=== PATIENT | female | born 1960 | race Caucasian/White ===

== ENCOUNTER 2020-04-23 17:00 | Emergency (ER) | payer SELFPAY ==
[~2020-04-23] VITALS: Ht 165.1 cm; Wt 122.3 kg
[~2020-04-23 17:00] MED LIST: CHLO1CAP PO; INSU100C5 SQ-INSULIN; INSU100V8 SQ; LISI-170 PO; MONT4GRA PO; OMEP20CA9 PO
--- NOTE | 2020-04-23 17:44 | NUR ---
Pt here for onset of dizziness after going to the denist. Pt reports she was told her BP was low. Pt reports that she started feeling worse today and its not getting better. Pt reports that she has no insurance and stopped taking her medications. Pt in room resting and connected to monitors.
[2020-04-23] MEDS ORDERED: MECLIZINE CHEWABLE 25 MG TAB ONE (17:51)
[2020-04-23] MEDS ORDERED: ONDANSETRON ODT 4 MG ONE (17:51)
[2020-04-23 18:00] LABS: BASOPHILS # (AUTO) 0.04 x10^3/uL (0-0.1); BASOPHILS % (AUTO) 0 % (0-1); EOSINOPHILS # (AUTO) 0.08 x10^3/uL (0-0.4); EOSINOPHILS % (AUTO) 1 % (1-7); LYMPHOCYTES # (AUTO) 2.02 x10^3/uL (1-3.4); LYMPHOCYTES % (AUTO) 21 % (22-44); MD NO; MEAN CORPUSCULAR HEMOGLOBIN 29.5 pg (27.0-34.8); MEAN CORPUSCULAR HGB CONC 34.3 g/dL (32.4-35.8); MEAN CORPUSCULAR VOLUME 86.2 fL (80-100); MEAN PLATELET VOLUME 8.1 fL (7.4-10.4); MONOCYTES % (AUTO) 6 % (2-9); NEUTROPHILS # (AUTO) 7.09 x10^3/uL (1.8-6.8); NEUTROPHILS % (AUTO) 72 % (42-75); PLATELET COUNT 317 x10^3/uL (130-400); RED BLOOD COUNT 4.21 x10^6/uL (3.82-5.3)
[2020-04-23] MEDS ORDERED: ONDANSETRON ODT 4 MG PO ONE (18:00)
[2020-04-23] MEDS ORDERED: MECLIZINE CHEWABLE 25 MG TAB PO ONE (18:00)
--- NOTE | 2020-04-23 18:00 | NUR ---
Pt medicated per emar.
[2020-04-23 18:11] LABS: ALANINE AMINOTRANSFERASE 15 U/L (12-78); ALBUMIN 3.1 g/dL (3.4-5.0); ANION GAP 9 mmol/L (5-15); CALCIUM 8.7 mg/dL (8.5-10.1); CHLORIDE 97 mmol/L (98-107)
[2020-04-23 18:15] LABS: ALKALINE PHOSPHATASE 86 U/L (45-117); BILIRUBIN,TOTAL 0.5 mg/dL (0.2-1.0); TROPONIN I < 0.015 ng/mL (0.000-0.045)
--- NOTE | 2020-04-23 18:59 | NUR ---
REPORT RECEIVED FROM ADI MURPHY.
[2020-04-23] MEDS ORDERED: SODIUM CHLORIDE 0.9% 1,000ML IVBOLUS ONE (19:00)
--- NOTE | 2020-04-23 19:04 | NUR ---
Report to Anjelica MURPHY
--- NOTE | 2020-04-23 19:12 | NUR ---
PT IV STARTED PER ORDERS, IVF INFUSING. PT ON MONITORS, VSS. CONT TO MONITOR.
--- NOTE | 2020-04-23 20:51 | NUR ---
PT D/C'D PER ORDERS. PT WITH STEADY GAIT UPON D/C. PT VERBALIZED UNDERSTANDING OF D/C INSTRUCTIONS.
[2020-04-23 20:52] VITALS: BP 170/78
== END 2020-04-23 20:53 | disposition home or self-care (01) ==
LOC: ED 18:39
DX: R55 Syncope and collapse (principal); E11.65 Type 2 diabetes mellitus with hyperglycemia; R79.89 Other specified abnormal findings of blood chemistry; R42 Dizziness and giddiness; R94.31 Abnormal electrocardiogram [ECG] [EKG]; R07.9 Chest pain, unspecified; I10 Essential (primary) hypertension; I25.2 Old myocardial infarction; J45.909 Unspecified asthma, uncomplicated; Z87.891 Personal history of nicotine dependence
CPT/HCPCS: 36415; 71045; 80053; 84484; 85025; 93005; 96360; 96361; 99285; J7030; Q0162

== ENCOUNTER 2020-12-25 16:13 | Inpatient (IN) | payer BC, OTHER, SELFPAY ==
[~2020-12-25] VITALS: Ht 165.1 cm; Wt 138.7 kg
[~2020-12-25 16:13] MED LIST changes: +ALBU18HF INH; +AMLO-150 PO; +ASCO500T9 PO; +AZIT500T PO; +CEFD300C37 PO; +CHOL500045 PO; +INSU100I11 SQ-INSULIN; +INSU100I13 SQ-INSULIN; +LISI-167 PO; +MELA5TAB14 PO; +ONDA4TAB13 PO; +ZINC220C7 PO
[2020-12-25] MEDS ORDERED: ONDANSETRON 2MG/ML, 2ML IVPush ONE (17:00)
[2020-12-25] MEDS ORDERED: MORPHINE SULFATE 4 MG/ML, 1ML IVPush ONE (17:00)
[2020-12-25] MEDS ORDERED: MORPHINE SULFATE 4 MG/ML, 1ML ONE (17:16)
[2020-12-25] MEDS ORDERED: ONDANSETRON 2MG/ML, 2ML ONE (17:16)
[2020-12-25 17:26] LABS: BASOPHILS % (AUTO) 1 % (0-1); EOSINOPHILS % (AUTO) 1 % (1-7); LYMPHOCYTES % (AUTO) 20 % (22-44); MEAN CORPUSCULAR HEMOGLOBIN 27.9 pg (27.0-34.8); MEAN CORPUSCULAR HGB CONC 33.3 g/dL (32.4-35.8); MEAN PLATELET VOLUME 7.6 fL (7.4-10.4); MONOCYTES % (AUTO) 8 % (2-9); NEUTROPHILS % (AUTO) 70 % (42-75); PLATELET COUNT 435 x10^3/uL (130-400); RED BLOOD COUNT 4.06 x10^6/uL (3.82-5.3); RED CELL DISTRIBUTION WIDTH 12.3 % (9.6-15.2)
[2020-12-25 17:34] LABS: ANION GAP 5 mmol/L (5-15); CALCIUM 8.6 mg/dL (8.5-10.1); CHLORIDE 98 mmol/L (98-107)
[2020-12-25 17:36] LABS: MD NO
--- NOTE | 2020-12-25 17:50 | NUR ---
PT HAS SWELLING AND BLISTER TO LEFT FOOT FROM A SANDLE THAT WAS RUBBING ON TOP OF FOOT PER PT. PT HAS FAMILY AT BED SIDE. PT AXO X 4, PT HAS EQUAL AND UNLABORED BREATHING. PT ON MONITOR WITH PT VSS
[2020-12-25] MEDS ORDERED: VANCOMYCIN PER PHARMACY MC ONE (18:30)
[2020-12-25] MEDS ORDERED: INSULIN REGULAR 100 UNITS/ML, 3ML VIAL IVPush ONE (18:30)
[2020-12-25] MEDS ORDERED: SODIUM CHLORIDE 0.9% 1,000ML IVBOLUS ONE (18:30)
[2020-12-25] MEDS ORDERED: AMPICILLIN/SULBACTAM 3 GM in SODIUM CHLORIDE 0.9% 100 ML IV ONE (18:30)
[2020-12-25] MEDS ORDERED: VANCOMYCIN 2,200 MG in SODIUM CHLORIDE 0.9% 500 ML IV ONE ×2 (19:30→21:00)
[2020-12-25 19:39] VITALS: BP 116/46
[2020-12-25] MEDS ORDERED: ALBUTEROL HFA 90 MCG/SPRAY INH PRN (20:30)
[2020-12-25] MEDS ORDERED: VANCOMYCIN PER PHARMACY MC PRN (20:30)
[2020-12-25] MEDS ORDERED: POLYETHYLENE GLYCOL 17 GM PACKET PO PRN (20:30)
[2020-12-25] MEDS ORDERED: BISACODYL 10 MG SUPP PR PRN (20:30)
[2020-12-25] MEDS ORDERED: ACETAMINOPHEN 325 MG TABLET PO PRN (20:30)
[2020-12-25] MEDS ORDERED: PHARMACOKINETIC MONITORING MC PRN (21:00)
[2020-12-25] MEDS: SODIUM CHLORIDE 0.9% 1,000 ML IV SCH (21:12)
[2020-12-25] MEDS: AMPICILLIN/SULBACTAM 3 GM in SODIUM CHLORIDE 0.9% 100 ML IV SCH (21:12)
[2020-12-25] MEDS: HEPARIN 5,000 UNITS/ML, 1ML SQ SCH (21:26)
[2020-12-25] MEDS: INSULIN LISPRO 100 UNITS/ML, PEN SQ-INSULIN SCH (21:26)
[2020-12-25] MEDS: MELATONIN 5 MG TABLET PO SCH (21:26)
[2020-12-25] MEDS: ASCORBIC ACID 500 MG TABLET PO SCH (21:26)
[2020-12-26 01:10] VITALS: BP 146/80
[2020-12-26] MEDS: AMPICILLIN/SULBACTAM 3 GM in SODIUM CHLORIDE 0.9% 100 ML IV SCH ×4 (03:10→21:00)
[2020-12-26 05:10] LABS: BASOPHILS % (AUTO) 1 % (0-1); EOSINOPHILS % (AUTO) 3 % (1-7); LYMPHOCYTES % (AUTO) 28 % (22-44); MEAN CORPUSCULAR HEMOGLOBIN 28.9 pg (27.0-34.8); MEAN CORPUSCULAR HGB CONC 34.4 g/dL (32.4-35.8); MEAN PLATELET VOLUME 7.4 fL (7.4-10.4); MONOCYTES % (AUTO) 9 % (2-9); NEUTROPHILS % (AUTO) 59 % (42-75); PLATELET COUNT 342 x10^3/uL (130-400); RED BLOOD COUNT 3.52 x10^6/uL (3.82-5.3); RED CELL DISTRIBUTION WIDTH 12.1 % (9.6-15.2)
[2020-12-26 05:11] LABS: MD NO
[2020-12-26 05:22] LABS: ANION GAP 2 mmol/L (5-15); CALCIUM 8.3 mg/dL (8.5-10.1); CHLORIDE 103 mmol/L (98-107); CREATININE 1.02 mg/dL (0.55-1.02)
[2020-12-26] MEDS: HEPARIN 5,000 UNITS/ML, 1ML SQ SCH ×3 (05:34→22:21)
[2020-12-26 07:11] VITALS: BP 132/70
[2020-12-26] MEDS: ZINC SULFATE 220 MG CAPSULE PO SCH (07:42)
[2020-12-26] MEDS: LISINOPRIL 10 MG TABLET PO SCH (07:43)
[2020-12-26] MEDS: AMLODIPINE 5 MG TABLET PO SCH (07:43)
[2020-12-26] MEDS: SENNA/DOCUSATE TABLET PO SCH (07:43)
[2020-12-26] MEDS: ASCORBIC ACID 500 MG TABLET PO SCH ×2 (07:43→21:01)
[2020-12-26] MEDS: CHOLECALCIFEROL 5,000u TAB PO SCH (07:43)
[2020-12-26] MEDS: INSULIN LISPRO 100 UNITS/ML, PEN SQ-INSULIN SCH ×4 (07:53→21:01)
[2020-12-26] MEDS: INSULIN GLARGINE 100 UNITS/ML, PEN SQ-INSULIN SCH (07:55)
[2020-12-26] MEDS: SODIUM CHLORIDE 0.9% 1,000 ML IV SCH (07:58)
[2020-12-26] MEDS: ONDANSETRON 2MG/ML, 2ML IVPush PRN (08:12)
[2020-12-26] MEDS: morphine SULFATE 10 MG/ML, 1ML IVPush PRN ×2 (10:18→21:01)
[2020-12-26] MEDS ORDERED: GADOTERATE 7.5 MMOL/15ML SYR ONE (12:40)
[2020-12-26 18:04] VITALS: BP 122/79
[2020-12-26 19:33] VITALS: BP 116/73
[2020-12-26] MEDS: MELATONIN 5 MG TABLET PO SCH (21:01)
[2020-12-26] MEDS: VANCOMYCIN 2,000 MG in SODIUM CHLORIDE 0.9% 500 ML IV SCH (22:21)
[2020-12-27 03:22] VITALS: BP 128/82
[2020-12-27] MEDS: AMPICILLIN/SULBACTAM 3 GM in SODIUM CHLORIDE 0.9% 100 ML IV SCH ×4 (03:23→21:21)
[2020-12-27 05:28] LABS: BASOPHILS % (AUTO) 1 % (0-1); EOSINOPHILS % (AUTO) 3 % (1-7); LYMPHOCYTES % (AUTO) 25 % (22-44); MEAN CORPUSCULAR HEMOGLOBIN 28.9 pg (27.0-34.8); MEAN CORPUSCULAR HGB CONC 34.3 g/dL (32.4-35.8); MEAN PLATELET VOLUME 7.5 fL (7.4-10.4); MONOCYTES % (AUTO) 7 % (2-9); NEUTROPHILS % (AUTO) 65 % (42-75); PLATELET COUNT 338 x10^3/uL (130-400); RED BLOOD COUNT 3.41 x10^6/uL (3.82-5.3); RED CELL DISTRIBUTION WIDTH 12.4 % (9.6-15.2)
[2020-12-27 05:29] LABS: MD NO
[2020-12-27 05:31] LABS: ANION GAP 5 mmol/L (5-15); CHLORIDE 104 mmol/L (98-107); CREATININE 0.94 mg/dL (0.55-1.02)
[2020-12-27] MEDS: HEPARIN 5,000 UNITS/ML, 1ML SQ SCH ×3 (06:11→21:23)
[2020-12-27 07:12] VITALS: BP 142/84
[2020-12-27] MEDS: AMLODIPINE 5 MG TABLET PO SCH (07:14)
[2020-12-27] MEDS: ZINC SULFATE 220 MG CAPSULE PO SCH (07:14)
[2020-12-27] MEDS: ASCORBIC ACID 500 MG TABLET PO SCH ×2 (07:14→21:22)
[2020-12-27] MEDS: LISINOPRIL 10 MG TABLET PO SCH (07:14)
[2020-12-27] MEDS: SENNA/DOCUSATE TABLET PO SCH (07:15)
[2020-12-27] MEDS: CHOLECALCIFEROL 5,000u TAB PO SCH (07:15)
[2020-12-27] MEDS: INSULIN LISPRO 100 UNITS/ML, PEN SQ-INSULIN SCH ×4 (07:20→21:24)
[2020-12-27] MEDS ORDERED: LORazepam 0.5MG TABLET PO ONE ×2 (08:30→21:30)
[2020-12-27] MEDS: INSULIN GLARGINE 100 UNITS/ML, PEN SQ-INSULIN SCH (10:06)
[2020-12-27] MEDS ORDERED: FUROSEMIDE 40 MG/4 ML IV ONE (11:30)
[2020-12-27 13:16] VITALS: BP 95/61
[2020-12-27 20:40] VITALS: BP 164/90
[2020-12-27] MEDS: MELATONIN 5 MG TABLET PO SCH (21:22)
[2020-12-27] MEDS: VANCOMYCIN 2,000 MG in SODIUM CHLORIDE 0.9% 500 ML IV SCH (22:30)
[2020-12-27] MEDS: morphine SULFATE 10 MG/ML, 1ML IVPush PRN (22:38)
[2020-12-28 00:05] VITALS: BP 113/67
[2020-12-28] MEDS: AMPICILLIN/SULBACTAM 3 GM in SODIUM CHLORIDE 0.9% 100 ML IV SCH ×4 (03:01→20:55)
[2020-12-28] MEDS: HEPARIN 5,000 UNITS/ML, 1ML SQ SCH ×3 (06:19→23:03)
[2020-12-28] MEDS: ALBUTEROL/IPRATROPIUM 2.5MG/0.5MG, 3 ML NPPB SCH ×3 (06:55→20:19)
[2020-12-28 06:57] VITALS: BP 145/70
[2020-12-28] MEDS: INSULIN GLARGINE 100 UNITS/ML, PEN SQ-INSULIN SCH (08:02)
[2020-12-28] MEDS: INSULIN LISPRO 100 UNITS/ML, PEN SQ-INSULIN SCH ×4 (08:02→20:57)
[2020-12-28] MEDS: ASCORBIC ACID 500 MG TABLET PO SCH ×2 (08:06→20:56)
[2020-12-28] MEDS: SENNA/DOCUSATE TABLET PO SCH (08:06)
[2020-12-28] MEDS: AMLODIPINE 5 MG TABLET PO SCH (08:07)
[2020-12-28] MEDS: LISINOPRIL 10 MG TABLET PO SCH (08:07)
[2020-12-28] MEDS: ZINC SULFATE 220 MG CAPSULE PO SCH (08:07)
[2020-12-28] MEDS: CHOLECALCIFEROL 5,000u TAB PO SCH (08:07)
[2020-12-28] MEDS ORDERED: FUROSEMIDE 40 MG/4 ML IV ONE (11:30)
[2020-12-28] MEDS: LORazepam 0.5MG TABLET PO PRN ×2 (11:31→20:55)
[2020-12-28 14:03] VITALS: BP 120/68
[2020-12-28 20:08] VITALS: BP 143/82
[2020-12-28] MEDS: MELATONIN 5 MG TABLET PO SCH (20:56)
[2020-12-28] MEDS: VANCOMYCIN 2,000 MG in SODIUM CHLORIDE 0.9% 500 ML IV SCH (23:02)
[2020-12-29] MEDS: AMPICILLIN/SULBACTAM 3 GM in SODIUM CHLORIDE 0.9% 100 ML IV SCH ×2 (02:44→10:38)
[2020-12-29 02:53] VITALS: BP 119/78
[2020-12-29 05:56] LABS: CHLORIDE 103 mmol/L (98-107)
[2020-12-29 06:07] LABS: ANION GAP 6 mmol/L (5-15); CALCIUM 8.3 mg/dL (8.5-10.1); CREATININE 0.92 mg/dL (0.55-1.02)
[2020-12-29] MEDS: INSULIN LISPRO 100 UNITS/ML, PEN SQ-INSULIN SCH ×2 (07:00→10:41)
[2020-12-29 07:50] VITALS: BP 101/62
[2020-12-29] MEDS: ALBUTEROL/IPRATROPIUM 2.5MG/0.5MG, 3 ML NPPB SCH (08:15)
[2020-12-29] MEDS: HEPARIN 5,000 UNITS/ML, 1ML SQ SCH (10:39)
[2020-12-29] MEDS: ONDANSETRON 2MG/ML, 2ML IVPush PRN (10:39)
[2020-12-29] MEDS: INSULIN GLARGINE 100 UNITS/ML, PEN SQ-INSULIN SCH (10:41)
[2020-12-29] MEDS: ZINC SULFATE 220 MG CAPSULE PO SCH (10:42)
[2020-12-29] MEDS: ASCORBIC ACID 500 MG TABLET PO SCH (10:42)
[2020-12-29] MEDS: CHOLECALCIFEROL 5,000u TAB PO SCH (10:42)
[2020-12-29] MEDS: AMLODIPINE 5 MG TABLET PO SCH (10:42)
[2020-12-29] MEDS: SENNA/DOCUSATE TABLET PO SCH (10:42)
[2020-12-29] MEDS: LORazepam 0.5MG TABLET PO PRN (10:43)
[2020-12-29] MEDS: LISINOPRIL 10 MG TABLET PO SCH (10:43)
[2020-12-29] MEDS ORDERED: LINE600T12 PO (11:35)
[2020-12-29] MEDS ORDERED: VANCOMYCIN 1,900 MG in SODIUM CHLORIDE 0.9% 250 ML IV SCH (23:00)
== END 2020-12-29 13:46 | disposition home or self-care (01) | DRG 602 ==
LOC: ED 18:42 → 3N 19:33
PROVIDERS: ADMIT Family Medicine; ATTEND Internal Medicine
DX: L03.116 Cellulitis of left lower limb (principal); N17.0 Acute kidney failure with tubular necrosis; E87.1 Hypo-osmolality and hyponatremia; Z68.43 Body mass index [BMI] 50.0-59.9, adult; E11.621 Type 2 diabetes mellitus with foot ulcer; L03.115 Cellulitis of right lower limb; L97.509 Non-pressure chronic ulcer of other part of unspecified foot with unspecified severity; Z88.6 Allergy status to analgesic agent; Z88.8 Allergy status to other drugs, medicaments and biological substances; B95.62 Methicillin resistant Staphylococcus aureus infection as the cause of diseases classified elsewhere; D64.9 Anemia, unspecified; E11.65 Type 2 diabetes mellitus with hyperglycemia; E66.01 Morbid (severe) obesity due to excess calories; I10 Essential (primary) hypertension; I25.2 Old myocardial infarction; J45.909 Unspecified asthma, uncomplicated; L97.529 Non-pressure chronic ulcer of other part of left foot with unspecified severity; Z79.4 Long term (current) use of insulin; Z80.3 Family history of malignant neoplasm of breast; Z82.3 Family history of stroke; Z85.41 Personal history of malignant neoplasm of cervix uteri; Z87.11 Personal history of peptic ulcer disease; Z90.711 Acquired absence of uterus with remaining cervical stump; Z90.710 Acquired absence of both cervix and uterus; Z90.49 Acquired absence of other specified parts of digestive tract
CPT/HCPCS: 36415; 80048; 80202; 82962; 83036; 83605; 83735; 84100; 85025; 86140; 87040; 87070; 87077; 87186; 87205; 94640; G0378; J0295; J1644; J1815; J1940; J2405; J3370; A9575; J2270; J7030; J7040

== ENCOUNTER 2021-01-01 10:03 | Inpatient (IN) | payer OTHER ==
[~2021-01-01] VITALS: Ht 165.1 cm; Wt 144.9 kg
[~2021-01-01 10:03] MED LIST changes: +LINE600T12 PO
--- NOTE | 2021-01-01 10:17 | NUR ---
PT BIBA.PER EMS PT HAS HAD SOB SINCE WEDNESDAY, BUT WORSE TODAY. PT HAS HX OF ASTHMA, INHALER DID NOT HELP TODAY. PER EMS PT WAS 70% RA, NOW IS 97% ON 2L NC. PT DENIES ANY CP OR FEVERS. PER EMS BS IS 399. PT ALSO STATES SHE IS A DIABETIC, BUT "I KEEP MY BLOOD SUGAR HIGH BECAUSE I GET SICK IF I LET IT GO BELOW 200". PT IS RESTING IN [facility], MONITORING IN PLACE, OSMAN DUKE AT BEDSIDE, EKG DONE, WCTM. PT ALSO STATING THAT SHE WAS DISCHARGED FROM THIS HOSPITAL ON WEDNESDAY, WAS HERE FOR MRSA ON HER LEG AND "MAYBE I HAVE HEART FAILURE".
[2021-01-01] MEDS ORDERED: SODIUM CHLORIDE FLUSH 10ML SYR IVF ONE (10:30)
[2021-01-01] MEDS ORDERED: LORazepam 2 MG/ML, 1ML IVPush ONE ×2 (10:30→13:30)
[2021-01-01] MEDS ORDERED: LORazepam 2 MG/ML, 1ML ONE (10:31)
[2021-01-01 10:52] LABS: BASOPHILS % (AUTO) 1 % (0-1); EOSINOPHILS % (AUTO) 0 % (1-7); LYMPHOCYTES % (AUTO) 8 % (22-44); MEAN CORPUSCULAR HEMOGLOBIN 28.8 pg (27.0-34.8); MEAN CORPUSCULAR HGB CONC 33.8 g/dL (32.4-35.8); MEAN PLATELET VOLUME 7.1 fL (7.4-10.4); MONOCYTES % (AUTO) 5 % (2-9); NEUTROPHILS % (AUTO) 86 % (42-75); PLATELET COUNT 378 x10^3/uL (130-400); RED CELL DISTRIBUTION WIDTH 12.7 % (9.6-15.2)
[2021-01-01 10:55] LABS: MD NO
[2021-01-01 10:58] LABS: ALANINE AMINOTRANSFERASE 22 U/L (12-78); ALBUMIN 3.2 g/dL (3.4-5.0); ANION GAP 5 mmol/L (5-15); CALCIUM 8.5 mg/dL (8.5-10.1); CHLORIDE 99 mmol/L (98-107); CREATININE 0.89 mg/dL (0.55-1.02)
[2021-01-01 11:02] LABS: ALKALINE PHOSPHATASE 125 U/L (45-117); BILIRUBIN,TOTAL 0.6 mg/dL (0.2-1.0); TOTAL PROTEIN 7.3 g/dL (6.4-8.2); TROPONIN I < 0.015 ng/mL (0.000-0.045)
[2021-01-01] MEDS ORDERED: AZITHROMYCIN 500 MG in SODIUM CHLORIDE 0.9% 250 ML IV ONE (12:00)
[2021-01-01] MEDS ORDERED: CEFTRIAXONE 1,000 MG in DEXTROSE 5% 50 ML IVPB ONE (12:00)
[2021-01-01] MEDS ORDERED: MELATONIN 5 MG TABLET PO PRN (12:30)
[2021-01-01] MEDS ORDERED: POLYETHYLENE GLYCOL 17 GM PACKET PO PRN (12:30)
[2021-01-01] MEDS ORDERED: BISACODYL 10 MG SUPP PR PRN (12:30)
[2021-01-01] MEDS ORDERED: LORazepam 2 MG/ML, 1ML IVPush PRN (12:30)
[2021-01-01] MEDS ORDERED: TEMAZEPAM 15 MG CAPSULE PO PRN (12:30)
[2021-01-01] MEDS ORDERED: hydrALAzine 20 MG/ML, 1ML IVPush PRN (12:30)
--- NOTE | 2021-01-01 13:15 | NUR ---
PT STATING SHE DOES NOT WANT TO BE ADMITTED AT THIS TIME. DR. NICK AT BEDSIDE TO DISCUSS ADMIT WITH PATIENT.
[2021-01-01] MEDS ORDERED: ICN cefTRIAXONE 2 MG in SYRINGE 1 EA IV SCH (13:34)
--- NOTE | 2021-01-01 13:40 | NUR ---
HOSPITALIST AND SREE OLIVIER AT BEDSIDE TO DISCUSS ADMIT VS AMA AT THIS TIME.
[2021-01-01] MEDS ORDERED: CEFTRIAXONE 2 GM in DEXTROSE 5% 50 ML IVPB SCH (14:00)
[2021-01-01] MEDS ORDERED: ALBUTEROL HFA 90 MCG/SPRAY INH PRN (14:00)
--- NOTE | 2021-01-01 14:03 | NUR ---
PT STATING SHE IS AGREEABLE TO ADMIT AT THIS TIME. REPORT TO JEFFREY JAMA CALLED.
--- NOTE | 2021-01-01 14:29 | NUR ---
SPOKE WITH SAMSON HERNANDEZ TEST TO BE CANCELLED.
[2021-01-01] MEDS ORDERED: ALBUTEROL/IPRATROPIUM 2.5MG/0.5MG, 3 ML NPPB SCH (15:00)
[2021-01-01 15:30] VITALS: BP 170/97
[2021-01-01] MEDS: BUMETANIDE 0.25 MG/ML, 4ML IV SCH ×2 (15:40→20:26)
[2021-01-01] MEDS: ENOXAPARIN 40 MG/0.4 ML SQ SCH (15:41)
[2021-01-01 15:47] VITALS: BP 170/97
[2021-01-01 16:26] LABS: TROPONIN I < 0.015 ng/mL (0.000-0.045)
[2021-01-01] MEDS: LORazepam 2 MG/ML, 1ML IVPush PRN ×2 (17:49→21:59)
[2021-01-01] MEDS: INSULIN LISPRO 100 UNITS/ML, PEN SQ-INSULIN SCH ×2 (18:19→21:43)
[2021-01-01] MEDS: ACETAMINOPHEN 325 MG TABLET PO PRN (18:20)
[2021-01-01] MEDS ORDERED: ALBUTEROL SULFATE 2.5 MG/3 ML NPPB PRN (18:30)
[2021-01-01 19:34] VITALS: BP 137/77
[2021-01-01] MEDS: LINEZOLID 600 MG TABLET PO SCH (20:26)
[2021-01-01] MEDS: POTASSIUM CHLORIDE 20 MEQ TAB.ER.PRT PO SCH (20:27)
[2021-01-01] MEDS: FAMOTIDINE 20 MG TABLET PO SCH (20:27)
[2021-01-01] MEDS: ASCORBIC ACID 500 MG TABLET PO SCH (20:27)
[2021-01-01] MEDS ORDERED: BUMETANIDE 0.25 MG/ML, 4ML IV SCH (21:00)
[2021-01-01] MEDS ORDERED: methylPREDNISolone SOD SUCC 40 MG/ML IV SCH (21:00)
[2021-01-01 22:12] LABS: TROPONIN I < 0.015 ng/mL (0.000-0.045)
[2021-01-02 00:17] VITALS: BP 140/79
[2021-01-02] MEDS: LORazepam 2 MG/ML, 1ML IVPush PRN ×3 (04:44→22:47)
[2021-01-02 05:11] LABS: BASOPHILS % (AUTO) 1 % (0-1); EOSINOPHILS % (AUTO) 0 % (1-7); LYMPHOCYTES % (AUTO) 8 % (22-44); MEAN CORPUSCULAR HEMOGLOBIN 27.9 pg (27.0-34.8); MEAN CORPUSCULAR HGB CONC 32.8 g/dL (32.4-35.8); MEAN PLATELET VOLUME 7.3 fL (7.4-10.4); MONOCYTES % (AUTO) 1 % (2-9); NEUTROPHILS % (AUTO) 90 % (42-75); PLATELET COUNT 412 x10^3/uL (130-400); RED BLOOD COUNT 4.06 x10^6/uL (3.82-5.3); RED CELL DISTRIBUTION WIDTH 12.9 % (9.6-15.2)
[2021-01-02 05:15] LABS: MD NO
[2021-01-02 05:23] LABS: ANION GAP 7 mmol/L (5-15); CALCIUM 8.6 mg/dL (8.5-10.1); CHLORIDE 102 mmol/L (98-107)
[2021-01-02 05:31] LABS: CREATININE 1.09 mg/dL (0.55-1.02); TROPONIN I < 0.015 ng/mL (0.000-0.045)
[2021-01-02 06:40] VITALS: BP 158/86
[2021-01-02] MEDS ORDERED: methylPREDNISolone SOD SUCC 40 MG/ML IV SCH (09:00)
[2021-01-02] MEDS: INSULIN GLARGINE 100 UNITS/ML, PEN SQ-INSULIN SCH (09:01)
[2021-01-02] MEDS: INSULIN LISPRO 100 UNITS/ML, PEN SQ-INSULIN SCH ×4 (09:02→21:18)
[2021-01-02] MEDS: LINEZOLID 600 MG TABLET PO SCH ×2 (09:03→21:16)
[2021-01-02] MEDS: BUMETANIDE 0.25 MG/ML, 4ML IV SCH ×2 (09:03→21:16)
[2021-01-02] MEDS: AMLODIPINE 5 MG TABLET PO SCH (09:03)
[2021-01-02] MEDS: POTASSIUM CHLORIDE 20 MEQ TAB.ER.PRT PO SCH ×2 (09:03→21:16)
[2021-01-02] MEDS: ASCORBIC ACID 500 MG TABLET PO SCH ×2 (09:03→21:16)
[2021-01-02] MEDS: AZITHROMYCIN 250 MG TABLET PO SCH (09:04)
[2021-01-02] MEDS: ZINC SULFATE 220 MG CAPSULE PO SCH (09:04)
[2021-01-02] MEDS: CHOLECALCIFEROL 5,000u TAB PO SCH (09:04)
[2021-01-02] MEDS: LISINOPRIL 10 MG TABLET PO SCH (09:04)
[2021-01-02] MEDS: FAMOTIDINE 20 MG TABLET PO SCH ×2 (09:04→21:16)
[2021-01-02] MEDS: CEFTRIAXONE 2 GM in DEXTROSE 5% 50 ML IVPB SCH (12:07)
[2021-01-02 12:08] VITALS: BP 167/83
[2021-01-02] MEDS: ENOXAPARIN 40 MG/0.4 ML SQ SCH (14:50)
[2021-01-02] MEDS: OXYcodone IR 5MG TABLET PO PRN (17:35)
[2021-01-02 19:58] VITALS: BP 152/89
[2021-01-03 01:32] VITALS: BP 144/82
[2021-01-03] MEDS: ENOXAPARIN 30 MG/0.3 ML SQ SCH ×2 (05:12→16:19)
[2021-01-03 06:03] LABS: BASOPHILS % (AUTO) 1 % (0-1); EOSINOPHILS % (AUTO) 1 % (1-7); LYMPHOCYTES % (AUTO) 22 % (22-44); MD NO; MEAN CORPUSCULAR HEMOGLOBIN 27.8 pg (27.0-34.8); MEAN CORPUSCULAR HGB CONC 32.9 g/dL (32.4-35.8); MEAN PLATELET VOLUME 7.2 fL (7.4-10.4); MONOCYTES % (AUTO) 10 % (2-9); NEUTROPHILS % (AUTO) 67 % (42-75); PLATELET COUNT 343 x10^3/uL (130-400); RED BLOOD COUNT 3.49 x10^6/uL (3.82-5.3); RED CELL DISTRIBUTION WIDTH 12.9 % (9.6-15.2)
[2021-01-03 06:09] LABS: CHLORIDE 103 mmol/L (98-107)
[2021-01-03 06:14] LABS: ANION GAP 6 mmol/L (5-15); CALCIUM 8.3 mg/dL (8.5-10.1); CREATININE 1.37 mg/dL (0.55-1.02)
[2021-01-03 09:00] VITALS: BP 144/77
[2021-01-03] MEDS: LINEZOLID 600 MG TABLET PO SCH (09:21)
[2021-01-03] MEDS: CHOLECALCIFEROL 5,000u TAB PO SCH (09:21)
[2021-01-03] MEDS: ZINC SULFATE 220 MG CAPSULE PO SCH (09:21)
[2021-01-03] MEDS: AZITHROMYCIN 250 MG TABLET PO SCH (09:21)
[2021-01-03] MEDS: AMLODIPINE 5 MG TABLET PO SCH (09:21)
[2021-01-03] MEDS: LISINOPRIL 10 MG TABLET PO SCH (09:22)
[2021-01-03] MEDS: FAMOTIDINE 20 MG TABLET PO SCH (09:22)
[2021-01-03] MEDS: DOCUSATE 100 MG CAPSULE PO PRN (09:22)
[2021-01-03] MEDS: ASCORBIC ACID 500 MG TABLET PO SCH ×2 (09:22→21:35)
[2021-01-03] MEDS: INSULIN LISPRO 100 UNITS/ML, PEN SQ-INSULIN SCH ×4 (09:23→21:54)
[2021-01-03] MEDS: INSULIN GLARGINE 100 UNITS/ML, PEN SQ-INSULIN SCH ×2 (09:23→21:55)
[2021-01-03] MEDS: CEFTRIAXONE 2 GM in DEXTROSE 5% 50 ML IVPB SCH (11:41)
[2021-01-03] MEDS: LORazepam 2 MG/ML, 1ML IVPush PRN ×2 (11:41→22:27)
[2021-01-03] MEDS: DAPTOMYCIN 750 MG in SODIUM CHLORIDE 0.9% 100 ML IV SCH (12:39)
[2021-01-03 14:41] VITALS: BP 124/71
[2021-01-03 21:08] VITALS: BP 133/74
[2021-01-03 21:37] VITALS: BP 130/78
[2021-01-03] MEDS: OXYcodone IR 5MG TABLET PO PRN (21:53)
[2021-01-04 02:26] VITALS: BP 132/83
[2021-01-04] MEDS: ENOXAPARIN 30 MG/0.3 ML SQ SCH ×2 (05:47→17:34)
[2021-01-04 06:01] LABS: BASOPHILS % (AUTO) 1 % (0-1); EOSINOPHILS % (AUTO) 3 % (1-7); LYMPHOCYTES % (AUTO) 27 % (22-44); MEAN CORPUSCULAR HEMOGLOBIN 28.6 pg (27.0-34.8); MEAN CORPUSCULAR HGB CONC 33.5 g/dL (32.4-35.8); MEAN PLATELET VOLUME 7.1 fL (7.4-10.4); MONOCYTES % (AUTO) 9 % (2-9); NEUTROPHILS % (AUTO) 61 % (42-75); PLATELET COUNT 332 x10^3/uL (130-400); RED BLOOD COUNT 3.52 x10^6/uL (3.82-5.3)
[2021-01-04 06:02] LABS: MD NO
[2021-01-04 06:16] LABS: CHLORIDE 104 mmol/L (98-107)
[2021-01-04 06:31] LABS: ANION GAP 6 mmol/L (5-15); CALCIUM 8.5 mg/dL (8.5-10.1); CREATININE 1.26 mg/dL (0.55-1.02)
[2021-01-04] MEDS ORDERED: BUMETANIDE 1 MG TABLET PO SCH (07:30)
[2021-01-04 08:25] VITALS: BP 138/83
[2021-01-04] MEDS: ASCORBIC ACID 500 MG TABLET PO SCH ×2 (08:37→20:59)
[2021-01-04] MEDS: FAMOTIDINE 20 MG TABLET PO SCH (08:37)
[2021-01-04] MEDS: AMLODIPINE 5 MG TABLET PO SCH (08:38)
[2021-01-04] MEDS: ZINC SULFATE 220 MG CAPSULE PO SCH (08:38)
[2021-01-04] MEDS: LISINOPRIL 10 MG TABLET PO SCH (08:38)
[2021-01-04] MEDS: CHOLECALCIFEROL 5,000u TAB PO SCH (08:38)
[2021-01-04] MEDS: AZITHROMYCIN 250 MG TABLET PO SCH (08:39)
[2021-01-04] MEDS: INSULIN GLARGINE 100 UNITS/ML, PEN SQ-INSULIN SCH ×2 (08:56→21:01)
[2021-01-04] MEDS: INSULIN LISPRO 100 UNITS/ML, PEN SQ-INSULIN SCH ×4 (08:57→21:01)
[2021-01-04] MEDS: CEFTRIAXONE 2 GM in DEXTROSE 5% 50 ML IVPB SCH (11:53)
[2021-01-04] MEDS: LORazepam 2 MG/ML, 1ML IVPush PRN ×2 (12:11→21:13)
[2021-01-04] MEDS: DAPTOMYCIN 750 MG in SODIUM CHLORIDE 0.9% 100 ML IV SCH (12:46)
[2021-01-04 20:49] VITALS: BP 133/81
[2021-01-04] MEDS: ACETAMINOPHEN 325 MG TABLET PO PRN (21:03)
[2021-01-05] VITALS (10 sets, daily range): BP systolic 112–174; BP diastolic 66–95
[2021-01-05] MEDS: LORazepam 2 MG/ML, 1ML IVPush PRN ×4 (01:15→16:10)
[2021-01-05 05:38] LABS: BASOPHILS % (AUTO) 1 % (0-1); EOSINOPHILS % (AUTO) 4 % (1-7); LYMPHOCYTES % (AUTO) 26 % (22-44); MEAN CORPUSCULAR HEMOGLOBIN 28.9 pg (27.0-34.8); MEAN PLATELET VOLUME 7.4 fL (7.4-10.4); MONOCYTES % (AUTO) 10 % (2-9); NEUTROPHILS % (AUTO) 59 % (42-75); PLATELET COUNT 331 x10^3/uL (130-400); RED BLOOD COUNT 3.46 x10^6/uL (3.82-5.3); RED CELL DISTRIBUTION WIDTH 13.1 % (9.6-15.2)
[2021-01-05 05:41] LABS: MD NO
[2021-01-05 05:42] LABS: ANION GAP 6 mmol/L (5-15); CALCIUM 8.6 mg/dL (8.5-10.1); CHLORIDE 103 mmol/L (98-107); CREATININE 1.18 mg/dL (0.55-1.02)
[2021-01-05] MEDS: ENOXAPARIN 30 MG/0.3 ML SQ SCH ×2 (05:56→16:14)
[2021-01-05] MEDS: ACETAMINOPHEN 325 MG TABLET PO PRN (05:56)
[2021-01-05] MEDS: INSULIN LISPRO 100 UNITS/ML, PEN SQ-INSULIN SCH ×4 (08:16→21:33)
[2021-01-05] MEDS: AZITHROMYCIN 250 MG TABLET PO SCH (08:17)
[2021-01-05] MEDS: CHOLECALCIFEROL 5,000u TAB PO SCH (08:18)
[2021-01-05] MEDS: ASCORBIC ACID 500 MG TABLET PO SCH ×2 (08:18→21:32)
[2021-01-05] MEDS: LISINOPRIL 10 MG TABLET PO SCH (08:18)
[2021-01-05] MEDS: ZINC SULFATE 220 MG CAPSULE PO SCH (08:19)
[2021-01-05] MEDS: AMLODIPINE 5 MG TABLET PO SCH (08:19)
[2021-01-05] MEDS: FAMOTIDINE 20 MG TABLET PO SCH (08:19)
[2021-01-05] MEDS: INSULIN GLARGINE 100 UNITS/ML, PEN SQ-INSULIN SCH ×2 (09:31→21:33)
[2021-01-05] MEDS ORDERED: OMNIPAQUE 350 MG/ML, 100ML BOTTLE ONE (10:23)
[2021-01-05] MEDS: CEFTRIAXONE 2 GM in DEXTROSE 5% 50 ML IVPB SCH (12:06)
[2021-01-05] MEDS: OXYcodone IR 5MG TABLET PO PRN (14:09)
[2021-01-05] MEDS: DAPTOMYCIN 750 MG in SODIUM CHLORIDE 0.9% 100 ML IV SCH (16:21)
[2021-01-06] MEDS: OXYcodone IR 5MG TABLET PO PRN ×2 (02:37→17:50)
[2021-01-06 02:49] VITALS: BP 132/80
[2021-01-06] MEDS: ENOXAPARIN 30 MG/0.3 ML SQ SCH ×2 (04:50→17:51)
[2021-01-06 05:35] LABS: BASOPHILS % (AUTO) 1 % (0-1); EOSINOPHILS % (AUTO) 2 % (1-7); LYMPHOCYTES % (AUTO) 11 % (22-44); MEAN CORPUSCULAR HEMOGLOBIN 28.7 pg (27.0-34.8); MEAN CORPUSCULAR HGB CONC 33.7 g/dL (32.4-35.8); MEAN PLATELET VOLUME 7.5 fL (7.4-10.4); MONOCYTES % (AUTO) 8 % (2-9); NEUTROPHILS % (AUTO) 79 % (42-75); PLATELET COUNT 306 x10^3/uL (130-400); RED BLOOD COUNT 3.48 x10^6/uL (3.82-5.3); RED CELL DISTRIBUTION WIDTH 12.9 % (9.6-15.2)
[2021-01-06 05:39] LABS: MD NO
[2021-01-06 05:43] LABS: ANION GAP 6 mmol/L (5-15); CALCIUM 8.6 mg/dL (8.5-10.1); CHLORIDE 103 mmol/L (98-107)
[2021-01-06 05:44] LABS: CREATININE 0.88 mg/dL (0.55-1.02)
[2021-01-06] MEDS: INSULIN LISPRO 100 UNITS/ML, PEN SQ-INSULIN SCH ×4 (07:00→19:52)
[2021-01-06 07:29] VITALS: BP 119/67
[2021-01-06] MEDS: FAMOTIDINE 20 MG TABLET PO SCH ×2 (09:14→21:37)
[2021-01-06] MEDS: ASCORBIC ACID 500 MG TABLET PO SCH ×2 (09:14→21:36)
[2021-01-06] MEDS: ZINC SULFATE 220 MG CAPSULE PO SCH (09:14)
[2021-01-06] MEDS: AMLODIPINE 5 MG TABLET PO SCH (09:14)
[2021-01-06] MEDS: INSULIN GLARGINE 100 UNITS/ML, PEN SQ-INSULIN SCH ×2 (09:14→21:38)
[2021-01-06] MEDS: CHOLECALCIFEROL 5,000u TAB PO SCH (09:14)
[2021-01-06] MEDS: LISINOPRIL 10 MG TABLET PO SCH (09:15)
[2021-01-06] MEDS: BUMETANIDE 1 MG TABLET PO SCH ×2 (09:20→17:50)
[2021-01-06 12:39] VITALS: BP 130/71
[2021-01-06] MEDS: DAPTOMYCIN 750 MG in SODIUM CHLORIDE 0.9% 100 ML IV SCH (12:55)
[2021-01-06 20:29] VITALS: BP 110/70
[2021-01-07] MEDS: OXYcodone IR 5MG TABLET PO PRN ×4 (00:57→21:35)
[2021-01-07 01:08] VITALS: BP 106/62
[2021-01-07] MEDS: ENOXAPARIN 30 MG/0.3 ML SQ SCH ×2 (05:17→16:10)
[2021-01-07] MEDS: INSULIN LISPRO 100 UNITS/ML, PEN SQ-INSULIN SCH ×4 (07:00→21:28)
[2021-01-07] MEDS: ASCORBIC ACID 500 MG TABLET PO SCH ×2 (08:04→21:30)
[2021-01-07] MEDS: AMLODIPINE 5 MG TABLET PO SCH (08:04)
[2021-01-07] MEDS: CHOLECALCIFEROL 5,000u TAB PO SCH (08:04)
[2021-01-07] MEDS: LISINOPRIL 10 MG TABLET PO SCH (08:05)
[2021-01-07] MEDS: ZINC SULFATE 220 MG CAPSULE PO SCH (08:05)
[2021-01-07] MEDS: INSULIN GLARGINE 100 UNITS/ML, PEN SQ-INSULIN SCH ×2 (08:05→21:29)
[2021-01-07] MEDS: FAMOTIDINE 20 MG TABLET PO SCH ×2 (08:05→21:30)
[2021-01-07] MEDS: BUMETANIDE 1 MG TABLET PO SCH ×2 (08:05→16:10)
[2021-01-07 08:37] VITALS: BP 132/62
[2021-01-07] MEDS: DAPTOMYCIN 750 MG in SODIUM CHLORIDE 0.9% 100 ML IV SCH (13:00)
[2021-01-07 14:16] VITALS: BP 116/73
[2021-01-07] MEDS: ONDANSETRON 2MG/ML, 2ML IVPush PRN (14:20)
[2021-01-07 21:06] VITALS: BP 135/84
[2021-01-08 00:50] VITALS: BP 111/71
[2021-01-08] MEDS: ENOXAPARIN 30 MG/0.3 ML SQ SCH ×2 (05:11→15:49)
[2021-01-08 05:51] LABS: BASOPHILS % (AUTO) 1 % (0-1); EOSINOPHILS % (AUTO) 3 % (1-7); LYMPHOCYTES % (AUTO) 20 % (22-44); MEAN CORPUSCULAR HEMOGLOBIN 28.6 pg (27.0-34.8); MEAN CORPUSCULAR HGB CONC 33.8 g/dL (32.4-35.8); MONOCYTES % (AUTO) 11 % (2-9); NEUTROPHILS % (AUTO) 65 % (42-75); PLATELET COUNT 244 x10^3/uL (130-400); RED BLOOD COUNT 3.24 x10^6/uL (3.82-5.3); RED CELL DISTRIBUTION WIDTH 12.8 % (9.6-15.2)
[2021-01-08 05:56] LABS: MD NO
[2021-01-08 06:03] LABS: CHLORIDE 99 mmol/L (98-107)
[2021-01-08 06:07] LABS: ANION GAP 6 mmol/L (5-15); CALCIUM 8.1 mg/dL (8.5-10.1); CREATININE 1.48 mg/dL (0.55-1.02)
[2021-01-08] MEDS: INSULIN LISPRO 100 UNITS/ML, PEN SQ-INSULIN SCH ×4 (07:00→20:29)
[2021-01-08] MEDS: ZINC SULFATE 220 MG CAPSULE PO SCH (08:56)
[2021-01-08] MEDS: ONDANSETRON 2MG/ML, 2ML IVPush PRN ×2 (08:56→15:49)
[2021-01-08] MEDS: AMLODIPINE 5 MG TABLET PO SCH (08:56)
[2021-01-08] MEDS: FAMOTIDINE 20 MG TABLET PO SCH (08:56)
[2021-01-08] MEDS: DOCUSATE 100 MG CAPSULE PO PRN (08:56)
[2021-01-08] MEDS: LISINOPRIL 10 MG TABLET PO SCH (08:56)
[2021-01-08] MEDS: CHOLECALCIFEROL 5,000u TAB PO SCH (08:57)
[2021-01-08] MEDS: OXYcodone IR 5MG TABLET PO PRN ×2 (08:57→14:51)
[2021-01-08] MEDS: BUMETANIDE 1 MG TABLET PO SCH (08:57)
[2021-01-08] MEDS: ASCORBIC ACID 500 MG TABLET PO SCH ×2 (08:57→20:38)
[2021-01-08] MEDS: INSULIN GLARGINE 100 UNITS/ML, PEN SQ-INSULIN SCH ×2 (09:00→20:29)
[2021-01-08] MEDS: SENNA/DOCUSATE TABLET PO SCH (09:30)
[2021-01-08] MEDS: DAPTOMYCIN 750 MG in SODIUM CHLORIDE 0.9% 100 ML IV SCH (12:58)
[2021-01-08 14:25] VITALS: BP 124/73
[2021-01-08 18:48] VITALS: BP 125/79
[2021-01-08] MEDS: LORazepam 2 MG/ML, 1ML IVPush PRN (20:37)
[2021-01-08] MEDS ORDERED: FAMOTIDINE 20 MG TABLET PO SCH (21:00)
[2021-01-09 00:23] VITALS: BP 113/70
[2021-01-09] MEDS: ONDANSETRON 2MG/ML, 2ML IVPush PRN ×2 (04:50→12:09)
[2021-01-09] MEDS: ENOXAPARIN 30 MG/0.3 ML SQ SCH (04:51)
[2021-01-09 05:52] LABS: BASOPHILS % (AUTO) 1 % (0-1); EOSINOPHILS % (AUTO) 3 % (1-7); LYMPHOCYTES % (AUTO) 21 % (22-44); MEAN CORPUSCULAR HEMOGLOBIN 28.9 pg (27.0-34.8); MEAN CORPUSCULAR HGB CONC 34.9 g/dL (32.4-35.8); MEAN PLATELET VOLUME 7.3 fL (7.4-10.4); MONOCYTES % (AUTO) 12 % (2-9); NEUTROPHILS % (AUTO) 63 % (42-75); PLATELET COUNT 257 x10^3/uL (130-400); RED BLOOD COUNT 3.33 x10^6/uL (3.82-5.3); RED CELL DISTRIBUTION WIDTH 12.7 % (9.6-15.2)
[2021-01-09 05:59] LABS: MD NO
[2021-01-09 06:09] LABS: CHLORIDE 98 mmol/L (98-107)
[2021-01-09 06:15] LABS: ANION GAP 7 mmol/L (5-15); CALCIUM 8.3 mg/dL (8.5-10.1); CREATININE 1.54 mg/dL (0.55-1.02)
[2021-01-09] MEDS ORDERED: BUME1TAB21 PO (08:14)
[2021-01-09] MEDS ORDERED: LINE600T12 PO (08:14)
[2021-01-09] MEDS ORDERED: SENN-211 PO (08:14)
[2021-01-09] MEDS ORDERED: OXYC5TAB98 PO (08:14)
[2021-01-09] MEDS ORDERED: HYDR-3343 PO (08:14)
[2021-01-09 08:45] VITALS: BP 119/73
[2021-01-09] MEDS: INSULIN LISPRO 100 UNITS/ML, PEN SQ-INSULIN SCH ×2 (10:00→12:08)
[2021-01-09] MEDS: ASCORBIC ACID 500 MG TABLET PO SCH (10:00)
[2021-01-09] MEDS: SENNA/DOCUSATE TABLET PO SCH (10:00)
[2021-01-09] MEDS: CHOLECALCIFEROL 5,000u TAB PO SCH (10:03)
[2021-01-09] MEDS: ZINC SULFATE 220 MG CAPSULE PO SCH (10:03)
[2021-01-09] MEDS: AMLODIPINE 5 MG TABLET PO SCH (10:04)
[2021-01-09] MEDS: BUMETANIDE 1 MG TABLET PO SCH (10:05)
[2021-01-09] MEDS: INSULIN GLARGINE 100 UNITS/ML, PEN SQ-INSULIN SCH (10:07)
[2021-01-09] MEDS: OXYcodone IR 5MG TABLET PO PRN (12:09)
[2021-01-09] MEDS: DAPTOMYCIN 750 MG in SODIUM CHLORIDE 0.9% 100 ML IV SCH (12:16)
[2021-01-09 12:25] VITALS: BP 113/70
== END 2021-01-09 18:30 | disposition home health service (06) | DRG 291 ==
LOC: ED 11:47 → 4WST 12:13 → 4EST 01-05 14:01
PROVIDERS: ADMIT Internal Medicine; ATTEND Family Medicine
DX: I11.0 Hypertensive heart disease with heart failure (principal); J15.9 Unspecified bacterial pneumonia; S32.019A Unspecified fracture of first lumbar vertebra, initial encounter for closed fracture; J96.01 Acute respiratory failure with hypoxia; L03.116 Cellulitis of left lower limb; J98.11 Atelectasis; N17.9 Acute kidney failure, unspecified; I50.33 Acute on chronic diastolic (congestive) heart failure; Z20.822 Contact with and (suspected) exposure to COVID-19; Z86.16 Personal history of COVID-19; E66.01 Morbid (severe) obesity due to excess calories; E11.621 Type 2 diabetes mellitus with foot ulcer; E11.65 Type 2 diabetes mellitus with hyperglycemia; D64.9 Anemia, unspecified; E11.628 Type 2 diabetes mellitus with other skin complications; F41.0 Panic disorder [episodic paroxysmal anxiety]; F41.1 Generalized anxiety disorder; G47.33 Obstructive sleep apnea (adult) (pediatric); I27.29 Other secondary pulmonary hypertension; I27.81 Cor pulmonale (chronic); J45.909 Unspecified asthma, uncomplicated; N63.20 Unspecified lump in the left breast, unspecified quadrant; F29 Unspecified psychosis not due to a substance or known physiological condition; R79.89 Other specified abnormal findings of blood chemistry; L97.529 Non-pressure chronic ulcer of other part of left foot with unspecified severity; W18.39XA Other fall on same level, initial encounter; Y93.89 Activity, other specified; Y92.89 Other specified places as the place of occurrence of the external cause; Y99.8 Other external cause status; Z79.4 Long term (current) use of insulin; Z86.14 Personal history of Methicillin resistant Staphylococcus aureus infection; Z87.891 Personal history of nicotine dependence; Z90.710 Acquired absence of both cervix and uterus; Z90.49 Acquired absence of other specified parts of digestive tract; Z79.899 Other long term (current) drug therapy; Z79.891 Long term (current) use of opiate analgesic; Z79.01 Long term (current) use of anticoagulants; Z88.8 Allergy status to other drugs, medicaments and biological substances; Z82.3 Family history of stroke; Z80.3 Family history of malignant neoplasm of breast; Z82.49 Family history of ischemic heart disease and other diseases of the circulatory system
CPT/HCPCS: 36415; 70450; 71045; 71250; 71275; 72131; 76604; 80048; 80053; 82947; 82962; 83605; 83735; 83880; 84100; 84484; 85025; 87040; 93005; 93306; 93926; 93970; 96365; 96375; 99291; G0378; J0456; J0696; J0878; J1650; J2405; Q9967; J1815; J2060; J2920; J7050

== ENCOUNTER 2021-04-22 08:22 | Emergency (ER) | payer OTHER ==
[~2021-04-22] VITALS: Ht 165.1 cm; Wt 131.0 kg
[~2021-04-22 08:22] MED LIST changes: +BUME1TAB21 PO; +HYDR-3343 PO; +OXYC5TAB98 PO; +SENN-211 PO
[2021-04-22] MEDS ORDERED: FAMOTIDINE 20 MG/2 ML IVPush ONE (08:30)
[2021-04-22] MEDS ORDERED: SODIUM CHLORIDE FLUSH 10ML SYR IVF ONE (08:30)
[2021-04-22] MEDS ORDERED: SODIUM CHLORIDE 0.9% 1,000ML IVBOLUS ONE ×2 (08:30→09:30)
[2021-04-22] MEDS ORDERED: FAMOTIDINE 20 MG/2 ML ONE (08:44)
--- NOTE | 2021-04-22 08:53 | NUR ---
LATE ENTRY D/T PATIENT CARE: THIS IS A 60 YO F BIB EMS FROM HOME W/ C/O N/V X1 WEEK, EPIGASTRIC PAIN 06/01 STARTING TODAY. PT W/ 150ML EMESIS RED/BLACK IN APPEARANCE AFTER ARRIVAL. PIV SUEDE CLEANER. PER EMS PT RECEIVED 300ML NS (D/C UPON ARRIVAL), 100MCG FENTANYL AND 4MG ZOFRAN SUEDE CLEANER. PT ALSO HAS C/O CHRONIC BACK PAIN R/T FX VERTEBRAE FOR WHICH SHE HAS NOT BEEN ABLE TO FOLLOW UP FOR. PER EMS FSBS 505, PT REPORTS HX OF DM BUT HAS NOT HAD INSULIN X1 WEEK STATING "IT MAKES ME MORE SICK". 2ND PIV STARTED, LABS DRAWN, PT MEDICATED PER EMAR. UNABLE TO OBTAIN ORAL OR AXILLARY TEMP. TEMPORAL READING 96.5F. PT REFUSING RECTAL AT THIS TIME.
[2021-04-22 08:57] LABS: O2 FLOW ROOM AIR L/min; PH, VENOUS 7.627 pH (7.320-7.420)
[2021-04-22 09:00] LABS: BASOPHILS % (AUTO) 1 % (0-1); EOSINOPHILS % (AUTO) 0 % (1-7); LYMPHOCYTES % (AUTO) 11 % (22-44); MEAN CORPUSCULAR HEMOGLOBIN 25.9 pg (27.0-34.8); MEAN CORPUSCULAR HGB CONC 34.2 g/dL (32.4-35.8); MEAN PLATELET VOLUME 7.9 fL (7.4-10.4); MONOCYTES % (AUTO) 5 % (2-9); NEUTROPHILS % (AUTO) 84 % (42-75); PLATELET COUNT 398 x10^3/uL (130-400); RED BLOOD COUNT 5.21 x10^6/uL (3.82-5.3); RED CELL DISTRIBUTION WIDTH 13.7 % (9.6-15.2)
[2021-04-22] MEDS ORDERED: MORPHINE SULFATE 4 MG/ML, 1ML ONE ×2 (09:05→10:06)
[2021-04-22] MEDS ORDERED: ONDANSETRON 2MG/ML, 2ML ONE (09:05)
[2021-04-22 09:11] LABS: ALANINE AMINOTRANSFERASE 13 U/L (12-78); ALBUMIN 3.2 g/dL (3.4-5.0); ANION GAP 19 mmol/L (5-15); CALCIUM 9.8 mg/dL (8.5-10.1); CHLORIDE 83 mmol/L (98-107)
[2021-04-22] MEDS: MORPHINE SULFATE 4 MG/ML, 1ML IVPush PRN ×2 (09:11→10:08)
--- NOTE | 2021-04-22 09:13 | NUR ---
PT AGREED TO RECTAL TEMP. 95.1F, ERP UPDATED.
[2021-04-22 09:14] LABS: ALKALINE PHOSPHATASE 114 U/L (45-117); BILIRUBIN,TOTAL 1.5 mg/dL (0.2-1.0); CREATININE 1.96 mg/dL (0.55-1.02); TOTAL PROTEIN 8.4 g/dL (6.4-8.2)
[2021-04-22] MEDS ORDERED: ONDANSETRON 2MG/ML, 2ML IVPush ONE (09:30)
--- NOTE | 2021-04-22 09:30 | NUR ---
APPROX 5 MINUTES AFTER CEMENTER MACHINE PT STATES "DID YOU GIVE IT YET? I DIDN'T FEEL THE HIGH THAT I NORMALLY DO W/ MORPHINE". PT EDUCATED ON SAFE CEMENTER MACHINE PRACTICES.
--- NOTE | 2021-04-22 09:59 | NUR ---
PT DECLINING STRAIGHT CATH URINE. PT TRANSFERED SELF TO COMMODE. URINE COLLECTED AND SENT TO LAB. 2ND NS L STARTED PER EMAR.
--- NOTE | 2021-04-22 10:00 | NUR ---
PT REPORTS RELIEF IN PAIN, HOWEVER NAUSEA PERSISTS. PT NO LONGER DRY HEAVING.
[2021-04-22 10:03] LABS: ACETONE, SERUM Large (80mg/dL) (Negative)
--- NOTE | 2021-04-22 10:11 | NUR ---
PT HAS C/O PAIN UPON RETURNED TO [facility]. PT MEDICATED PER EMAR. PT RESTING ON [facility] W/ CALL LIGHT IN REACH AND SIDE RAILS UPX2. CONNECTED TO ALL MONITORING. WARM BLANKETS AND WARM AIR BLOWER IN PLACE.
[2021-04-22 10:17] LABS: MICROSCOPIC AUTO
--- NOTE | 2021-04-22 10:18 | NUR ---
ERP UPDATED ON PTS WORSENING PAIN. CT ORDERED.
--- NOTE | 2021-04-22 10:22 | NUR ---
PT REPORTS HX OF HTN, HAS NOT TAKEN HOME MEDS IN APPROX X1 WEEK.
[2021-04-22] MEDS ORDERED: HYDROmorphone 2 MG/ML, 1ML ONE (10:29)
[2021-04-22] MEDS ORDERED: HYDROmorphone 1 MG/ML, 1ML INJ IV ONE (10:30)
--- NOTE | 2021-04-22 10:42 | NUR ---
PT TO CT. APPEARS MORE COMFORTABLE SINCE PUBLIC POLICY MEDIATOR.
--- NOTE | 2021-04-22 10:59 | NUR ---
BOOTS REMOVED AND FEET ASSESSED. LARGE DEEP OPEN WOUND TO BOTTOM OF RT FOOT. PT REPORTS SEE'S WOUND CARE AND PT OUTPATIENT. PT REPORTS HAS NOT TAKEN ABX IN X1 WEEK.
--- NOTE | 2021-04-22 11:24 | NUR ---
PTS APPEARS TO HAVE SIGNIFICANTLY IMPROVE AEB SPEAKING IN FULL SENTENCES W/O DISTRESS, TALKING ON PHONE. ALL TESTS RESULTED. PT IS UP FOR RECHECK AT THIS TIME.
[2021-04-22 11:27] LABS: O2 FLOW ROOM AIR L/min
--- NOTE | 2021-04-22 11:35 | NUR ---
PT DESAT WHILE SLEEPING. PLACED ON 3L NC W/ DESIRED EFFECT. AT THIS TIME PT STATES THAT SHE IS SUPPOSED TO WEAR 2L NC BASELINE BUT IS NON COMPLIANT AT HOME.
[2021-04-22] MEDS ORDERED: INSULIN SINGLE DOSE, ER ONE (11:57)
[2021-04-22] MEDS ORDERED: INSULIN REGULAR 100 UNITS/ML, 3ML VIAL SQ-INSULIN ONE (12:00)
[2021-04-22 12:12] VITALS: BP 154/83
--- NOTE | 2021-04-22 12:14 | NUR ---
AT BEDSIDE TO UPDATE PT ON POC. PT STATES "THERE'S ABSOLUTELY NO WAY IM STAYING IN THE HOSPITAL, I'M GOING HOME, I HAVE PROBLEMS W/ HOSPITALS, IM A HIGH FUNCTIONING DIABETIC". APPROX 10 MINUTES SPENT EDUCATING PT ON RISKS OF LEAVING W/. PT ADAMANT ABOUT LEAVING. AMA FORM SIGNED. PIV REMOVED X2.
--- NOTE | 2021-04-22 12:28 | NUR ---
PT AMBULATED W/ A STEADY GAIT TO DC DESK W/ SPOUSE. RESP EVEN AND UNLABORED, NADN.
[2021-04-22] MEDS ORDERED: SODIUM CHLORIDE FLUSH 10ML SYR IVF PRN (12:30)
== END 2021-04-22 12:45 | disposition left against medical advice (07) ==
LOC: ED 11:45
DX: R10.13 Epigastric pain (principal); R11.2 Nausea with vomiting, unspecified; E86.0 Dehydration; R19.7 Diarrhea, unspecified; E11.65 Type 2 diabetes mellitus with hyperglycemia; I11.0 Hypertensive heart disease with heart failure; I50.9 Heart failure, unspecified; J45.909 Unspecified asthma, uncomplicated; Z90.49 Acquired absence of other specified parts of digestive tract; Z90.710 Acquired absence of both cervix and uterus
CPT/HCPCS: 36415; 36600; 74176; 80053; 81001; 82010; 82803; 82962; 83605; 83690; 84145; 85025; 87040; 93005; 96361; 96374; 96375; 99285; J1170; J2270; J2405; J7030; J1815

== ENCOUNTER 2021-04-24 01:17 | Inpatient (IN) | payer OTHER ==
[~2021-04-24] VITALS: Ht 167.6 cm; Wt 113.3 kg
--- NOTE | 2021-04-24 01:55 | NUR ---
Patient HERNANDO from home for ALOC. EMS states saw patient normal last night at 1900. Within the last hour, patient rolled out of bed onto the floor and was yelling, not acting herself. Per EMS, is a poor historian. Patient has had a recent stroke and was also in the ER x2 days ago. Upon arrival, patient is restrained and yelling. Patient not able to answer AAO questions.
[2021-04-24] MEDS ORDERED: LORazepam 2 MG/ML, 1ML ONE (01:56)
[2021-04-24] MEDS ORDERED: SODIUM CHLORIDE FLUSH 10ML SYR IVF ONE (02:00)
[2021-04-24] MEDS ORDERED: SODIUM CHLORIDE 0.9% 1,000ML IVBOLUS ONE ×2 (02:00→03:30)
[2021-04-24] MEDS ORDERED: LORazepam 2 MG/ML, 1ML IVPush ONE (02:00)
[2021-04-24] MEDS ORDERED: KETAMINE 10 MG/ML, 20ML ONE ×2 (02:11→04:34)
[2021-04-24] MEDS ORDERED: KETAMINE 10 MG/ML, 20ML IV ONE ×4 (02:30→04:00)
[2021-04-24 02:31] LABS: BASOPHILS % (AUTO) 1 % (0-1); EOSINOPHILS % (AUTO) 0 % (1-7); LYMPHOCYTES % (AUTO) 14 % (22-44); MEAN CORPUSCULAR HEMOGLOBIN 25.9 pg (27.0-34.8); MEAN CORPUSCULAR HGB CONC 34.3 g/dL (32.4-35.8); MEAN PLATELET VOLUME 7.7 fL (7.4-10.4); MONOCYTES % (AUTO) 5 % (2-9); NEUTROPHILS % (AUTO) 81 % (42-75); PLATELET COUNT 476 x10^3/uL (130-400); RED BLOOD COUNT 5.69 x10^6/uL (3.82-5.3); RED CELL DISTRIBUTION WIDTH 14.1 % (9.6-15.2)
--- NOTE | 2021-04-24 02:39 | NUR ---
phleb at bs to lab draw. pt continues to fight against staff. md aware, vo for additional dose of ketamine. will montior for effects.
[2021-04-24 02:43] LABS: ALANINE AMINOTRANSFERASE 18 U/L (12-78); ALBUMIN 2.9 g/dL (3.4-5.0); ANION GAP 15 mmol/L (5-15); CALCIUM 9.7 mg/dL (8.5-10.1); CHLORIDE 91 mmol/L (98-107); CREATININE 2.82 mg/dL (0.55-1.02)
[2021-04-24 02:45] LABS: ALKALINE PHOSPHATASE 111 U/L (45-117); BILIRUBIN,TOTAL 0.7 mg/dL (0.2-1.0); TOTAL PROTEIN 8.2 g/dL (6.4-8.2)
--- NOTE | 2021-04-24 03:00 | NUR ---
Medicated patient and accompanied to CT and XR.
--- NOTE | 2021-04-24 03:05 | NUR ---
LAW PLACED C LACQUER DIPPING MACHINE OPERATOR, UA & UDS COLLECTED & SENT.
[2021-04-24 03:16] LABS: MICROSCOPIC AUTO
[2021-04-24 03:26] LABS: AMPHETAMINE SCREEN, URINE Negative (Negative); BARBITURATE SCREEN, URINE Negative (Negative); BENZODIAZEPINE SCREEN, URINE Negative (Negative); CANNABINOID SCREEN, URINE Negative (Negative); COCAINE SCREEN, URINE Negative (Negative); METHADONE SCREEN, URINE Negative (Negative); OPIATE SCREEN, URINE Positive (Negative)
[2021-04-24] MEDS ORDERED: PIPERACILLIN/TAZO 3.375 GM in DEXTROSE 5% 50 ML IVPB ONE (03:30)
[2021-04-24] MEDS ORDERED: POTASSIUM CHLORIDE 40 MEQ in SODIUM CHLORIDE 0.9% 500 ML IV ONE ×2 (03:30→10:30)
[2021-04-24] MEDS ORDERED: VANCOMYCIN PER PHARMACY MC PRN ×3 (03:30→09:30)
[2021-04-24] MEDS ORDERED: VANCOMYCIN 2,000 MG in SODIUM CHLORIDE 0.9% 500 ML IV ONE (03:30)
[2021-04-24] MEDS ORDERED: PROPOFOL 10 MG/ML, 20ML ONE (04:39)
[2021-04-24 05:32] LABS: GLUCOSE, CSF 78 mg/dL (40-80); TOTAL PROTEIN,CSF 58 mg/dL (15-45)
[2021-04-24] MEDS ORDERED: PROPOFOL 10 MG/ML, 20ML IVPush ONE (06:00)
[2021-04-24] MEDS ORDERED: KETAMINE 100 MG/ML, 5ML IV ONE (06:00)
[2021-04-24 06:39] LABS: O2 FLOW ROOM AIR L/min
--- NOTE | 2021-04-24 07:13 | NUR ---
Report given to JEFFREY Bedoya. Patient care transferred.
--- NOTE | 2021-04-24 07:27 | NUR ---
report taken from JEFFREY Rangel at bedside. pt is alert and oriented to self, following some commands. speech slightly slurred, asking for water. pt remains in 4 pt restraints as she continues to pull lines and attempt to get out of bed. at bedside providing verbal support. all monitors in place including core temp connected to conti. safety checks in place q15 min per protocol for restraints. cms intact to all extremities. left AC PIV infiltrated at shift change, new PIV placed to left shoulder, potassium running through left shoulder PIV via IV pump, left hand PIV remains patent with no s/sx infiltration, vanco infusing here via IV pump. conti drainging clear yellow urine. pt dressed in yellow gown, extra linens removed from bed. pt awaiting CCU bed, updated with POC.
[2021-04-24] MEDS ORDERED: hydrALAzine 20 MG/ML, 1ML IVPush PRN (07:30)
[2021-04-24] MEDS ORDERED: morphine SULFATE 10 MG/ML, 1ML IVPush PRN (07:30)
[2021-04-24] MEDS ORDERED: OXYcodone IR 5MG TABLET PO PRN (07:30)
[2021-04-24] MEDS ORDERED: LABETALOL 5MG/ML, 20ML IVPush PRN (07:30)
[2021-04-24] MEDS ORDERED: BISACODYL 10 MG SUPP PR PRN (07:30)
[2021-04-24] MEDS ORDERED: POLYETHYLENE GLYCOL 17 GM PACKET PO PRN (07:30)
[2021-04-24] MEDS: NS + 20MEQ KCL 1,000 ML IV SCH ×2 (07:30→21:04)
--- NOTE | 2021-04-24 07:32 | NUR ---
pts unable to recall pt's home meds, this RN unable to complete med rec at this time.
--- NOTE | 2021-04-24 07:42 | NUR ---
this RN discussed with EDWI [place] pt's imaging and labs. EDWI Christiano notified pt meeting criteria for septic shock as pt's initial lactic acid was 4.3, per MD, pt has received 2L NS and does not require any additional fluids.
--- NOTE | 2021-04-24 08:06 | NUR ---
PT MOVED FROM ED 16 TO ED 18, PT MOVED ONTO [facility]OSPITAL BED. BILATERAL UPPER EXTREMITY RESTRAINTS SWITCHED FROM LEATHER RESTRAINTS TO SOFT RESTRAINTS. BILATERAL LOWER EXTREMITY RESTRAINTS REMOVED. RESTRAINT FORM SIGNED BY MD GARZA ON RESTRAINT INITIATION. SAFETY AND CMS CHECKS IN PLACE Q15 MIN PER POLICY. PT AWAKE, ALERT, NO CHANGE IN MENTAL STATUS. SPEECH REMAINS SLIGHTLY SLURRED, PT FOLLOWING COMMANDS. AT BEDSIDE. PRECEDEX ORDERED FROM PHARMACY THIS IS NOT IN ED OMNICELL.
--- NOTE | 2021-04-24 08:30 | NUR ---
REPORT GIVEN TO JEFFREY LEE AT BEDSIDE. PT AWAKE, ALERT, RESPS EVEN AND UNLABORED. ALL MONITORS REMAIN IN PLACE, NSR ON RHEUMATOLOGIST WITH NO ECTOPY. AT BEDSIDE. WEIGHT SHIFTS IN PLACE Q1HR. RESTRAINTS REPOSITIONED. CARE TRANSFERRED TO JEFFREY LEE.
[2021-04-24] MEDS: DEXMEDETOMIDINE 400 MCG in SODIUM CHLORIDE 0.9% 96 ML IV PRN ×2 (09:16→09:20)
[2021-04-24] MEDS: SENNA/DOCUSATE TABLET PO SCH (10:09)
--- NOTE | 2021-04-24 10:46 | NUR ---
PT PUT ON 2L NC FOR SPO2 OF 88%. PT SPO2 NOW 93%. REPORTS PT USES HOME O2 OF 2L NC AT NIGHT.
[2021-04-24] MEDS ORDERED: HEPARIN 5,000 UNITS/ML, 1ML ONE (11:26)
[2021-04-24] MEDS: HEPARIN 5,000 UNITS/ML, 1ML SQ SCH ×2 (11:29→18:20)
[2021-04-24] MEDS ORDERED: PIPERACILLIN/TAZO 2.25 GM in SODIUM CHLORIDE 0.9% 50 ML IVPB SCH (12:00)
[2021-04-24 12:15] LABS: CALCIUM 8.2 mg/dL (8.5-10.1)
[2021-04-24 12:20] LABS: ANION GAP 10 mmol/L (5-15); CHLORIDE 100 mmol/L (98-107); CREATININE 2.53 mg/dL (0.55-1.02)
--- NOTE | 2021-04-24 13:56 | NUR ---
PT REPORT TO JEFFREY GARCIA
[2021-04-24] MEDS ORDERED: POTASSIUM CHLORIDE 20 MEQ TAB.ER.PRT PO ONE (16:00)
[2021-04-24 19:03] VITALS: BP 159/86
[2021-04-24] MEDS: ACETAMINOPHEN 325 MG TABLET PO PRN (21:17)
[2021-04-25] MEDS: HEPARIN 5,000 UNITS/ML, 1ML SQ SCH ×3 (00:11→16:28)
[2021-04-25] MEDS: PIPERACILLIN/TAZO 2.25 GM in DEXTROSE 5% 50 ML IVPB SCH ×2 (00:11→06:04)
[2021-04-25 00:26] VITALS: BP 153/82
[2021-04-25 06:01] LABS: BASOPHILS % (AUTO) 1 % (0-1); EOSINOPHILS % (AUTO) 1 % (1-7); LYMPHOCYTES % (AUTO) 29 % (22-44); MEAN CORPUSCULAR HEMOGLOBIN 25.9 pg (27.0-34.8); MEAN CORPUSCULAR HGB CONC 33.8 g/dL (32.4-35.8); MEAN PLATELET VOLUME 7.6 fL (7.4-10.4); MONOCYTES % (AUTO) 8 % (2-9); NEUTROPHILS % (AUTO) 61 % (42-75); PLATELET COUNT 318 x10^3/uL (130-400); RED BLOOD COUNT 4.14 x10^6/uL (3.82-5.3); RED CELL DISTRIBUTION WIDTH 14.2 % (9.6-15.2)
[2021-04-25 06:12] LABS: CHLORIDE 100 mmol/L (98-107)
[2021-04-25] MEDS: ACETAMINOPHEN 325 MG TABLET PO PRN ×2 (06:15→17:40)
[2021-04-25 06:19] LABS: ALANINE AMINOTRANSFERASE 15 U/L (12-78); ALBUMIN 2.3 g/dL (3.4-5.0); ALKALINE PHOSPHATASE 80 U/L (45-117); ANION GAP 10 mmol/L (5-15); BILIRUBIN,TOTAL 0.6 mg/dL (0.2-1.0); CALCIUM 8.4 mg/dL (8.5-10.1); CREATININE 2.25 mg/dL (0.55-1.02); TOTAL PROTEIN 6.1 g/dL (6.4-8.2); VANCOMYCIN,RANDOM 20.5 mcg/mL
[2021-04-25 08:48] VITALS: BP 144/78
[2021-04-25] MEDS: NS + 20MEQ KCL 1,000 ML IV SCH ×2 (09:00→17:40)
[2021-04-25] MEDS: SENNA/DOCUSATE TABLET PO SCH (09:00)
[2021-04-25] MEDS ORDERED: PHARMACOKINETIC MONITORING MC PRN (11:30)
[2021-04-25] MEDS: PIPERACILLIN/TAZO 3.375 GM in DEXTROSE 5% 50 ML IV SCH ×2 (11:57→17:40)
[2021-04-25] MEDS ORDERED: VANCOMYCIN 1,800 MG in SODIUM CHLORIDE 0.9% 250 ML IV ONE (13:00)
[2021-04-25 15:24] VITALS: BP 142/82
[2021-04-25 18:51] VITALS: BP 154/84
[2021-04-26] MEDS: PIPERACILLIN/TAZO 3.375 GM in DEXTROSE 5% 50 ML IV SCH ×4 (00:23→14:00)
[2021-04-26] MEDS: ONDANSETRON 2MG/ML, 2ML IVPush PRN ×2 (00:23→07:52)
[2021-04-26] MEDS: HEPARIN 5,000 UNITS/ML, 1ML SQ SCH ×3 (00:23→19:26)
[2021-04-26 00:26] VITALS: BP 157/88
[2021-04-26] MEDS ORDERED: CALCIUM CARBONATE 500 MG TAB.CHEW PO PRN (01:45)
[2021-04-26] MEDS: NS + 20MEQ KCL 1,000 ML IV SCH (04:20)
[2021-04-26 05:06] LABS: BASOPHILS % (AUTO) 2 % (0-1); EOSINOPHILS % (AUTO) 2 % (1-7); LYMPHOCYTES % (AUTO) 24 % (22-44); MEAN CORPUSCULAR HEMOGLOBIN 25.8 pg (27.0-34.8); MEAN CORPUSCULAR HGB CONC 33.7 g/dL (32.4-35.8); MEAN PLATELET VOLUME 7.5 fL (7.4-10.4); MONOCYTES % (AUTO) 8 % (2-9); NEUTROPHILS % (AUTO) 64 % (42-75); PLATELET COUNT 315 x10^3/uL (130-400); RED BLOOD COUNT 4.03 x10^6/uL (3.82-5.3); RED CELL DISTRIBUTION WIDTH 13.9 % (9.6-15.2)
[2021-04-26 05:29] LABS: CHLORIDE 100 mmol/L (98-107)
[2021-04-26 05:34] LABS: ANION GAP 7 mmol/L (5-15); CALCIUM 8.5 mg/dL (8.5-10.1); CREATININE 1.79 mg/dL (0.55-1.02)
[2021-04-26 06:49] VITALS: BP 157/84
[2021-04-26] MEDS ORDERED: MAGNESIUM SULFATE 1 GM/2 ML IVPush SCH (08:30)
[2021-04-26] MEDS: SENNA/DOCUSATE TABLET PO SCH (09:00)
[2021-04-26 14:13] VITALS: BP 148/80
[2021-04-26] MEDS ORDERED: PROCHLORPERAZINE 5 MG/ML, 2ML IVPush PRN (15:30)
[2021-04-26] MEDS ORDERED: CEFTRIAXONE 1,000 MG IM SCH (15:30)
[2021-04-26] MEDS ORDERED: OXYcodone/APAP 5/325MG TABLET PO PRN (15:30)
[2021-04-26] MEDS ORDERED: ALUMINUM/MAG/SIMETHICONE 30 ML UDC PO PRN (15:30)
[2021-04-26] MEDS: CEFTRIAXONE 1,000 MG in DEXTROSE 5% 50 ML IVPB SCH (17:06)
[2021-04-26 19:18] VITALS: BP 155/89
[2021-04-26] MEDS: ACETAMINOPHEN 325 MG TABLET PO PRN (19:25)
[2021-04-27] MEDS: HEPARIN 5,000 UNITS/ML, 1ML SQ SCH ×2 (02:58→11:09)
[2021-04-27 03:00] VITALS: BP 139/75
[2021-04-27 06:43] LABS: BASOPHILS % (AUTO) 1 % (0-1); EOSINOPHILS % (AUTO) 4 % (1-7); LYMPHOCYTES % (AUTO) 29 % (22-44); MEAN CORPUSCULAR HEMOGLOBIN 25.5 pg (27.0-34.8); MEAN CORPUSCULAR HGB CONC 33.9 g/dL (32.4-35.8); MEAN PLATELET VOLUME 7.5 fL (7.4-10.4); MONOCYTES % (AUTO) 8 % (2-9); NEUTROPHILS % (AUTO) 59 % (42-75); PLATELET COUNT 313 x10^3/uL (130-400); RED BLOOD COUNT 4.07 x10^6/uL (3.82-5.3)
[2021-04-27 06:50] LABS: ANION GAP 7 mmol/L (5-15); CALCIUM 8.5 mg/dL (8.5-10.1); CHLORIDE 98 mmol/L (98-107); CREATININE 1.32 mg/dL (0.55-1.02)
[2021-04-27 06:52] LABS: VANCOMYCIN,RANDOM 22.2 mcg/mL
[2021-04-27 08:09] VITALS: BP 131/81
[2021-04-27] MEDS: SENNA/DOCUSATE TABLET PO SCH (09:00)
[2021-04-27] MEDS: ONDANSETRON 2MG/ML, 2ML IVPush PRN ×2 (11:08→16:33)
[2021-04-27] MEDS ORDERED: ONDA4TAB13 PO (12:54)
[2021-04-27] MEDS ORDERED: DOXY100T23 PO ×2 (12:54)
[2021-04-27] MEDS ORDERED: OXYC-302 PO (13:01)
[2021-04-27 13:18] VITALS: BP 170/96
[2021-04-27] MEDS: CEFTRIAXONE 1,000 MG in DEXTROSE 5% 50 ML IVPB SCH (16:00)
[2021-04-27] MEDS ORDERED: CEFP200T PO (20:41)
== END 2021-04-27 17:55 | disposition home health service (06) | DRG 871 ==
LOC: ED 05:30 → EDIP 07:27 → 3N 14:07
PROVIDERS: ADMIT Internal Medicine; ATTEND Internal Medicine
PROC: 009U3ZX Drainage of Spinal Canal, Percutaneous Approach, Diagnostic (ICD-10-PCS; principal; 2021-04-24)
PROC: 0T9B70Z Drainage of Bladder with Drainage Device, Via Natural or Artificial Opening (ICD-10-PCS; 2021-04-24)
DX: A41.9 Sepsis, unspecified organism (principal); G93.41 Metabolic encephalopathy; N17.0 Acute kidney failure with tubular necrosis; J18.9 Pneumonia, unspecified organism; E87.1 Hypo-osmolality and hyponatremia; E87.2 Acidosis; E44.0 Moderate protein-calorie malnutrition; Z68.41 Body mass index [BMI] 40.0-44.9, adult; I13.0 Hypertensive heart and chronic kidney disease with heart failure and stage 1 through stage 4 chronic kidney disease, or unspecified chronic kidney disease; E11.22 Type 2 diabetes mellitus with diabetic chronic kidney disease; E87.6 Hypokalemia; I25.10 Atherosclerotic heart disease of native coronary artery without angina pectoris; I50.9 Heart failure, unspecified; N18.9 Chronic kidney disease, unspecified; R65.20 Severe sepsis without septic shock; F41.9 Anxiety disorder, unspecified; G89.29 Other chronic pain; M54.9 Dorsalgia, unspecified; Z79.4 Long term (current) use of insulin; I25.2 Old myocardial infarction; Z80.3 Family history of malignant neoplasm of breast; Z82.3 Family history of stroke; Z82.49 Family history of ischemic heart disease and other diseases of the circulatory system; Z85.41 Personal history of malignant neoplasm of cervix uteri; Z86.16 Personal history of COVID-19; Z87.01 Personal history of pneumonia (recurrent); Z90.711 Acquired absence of uterus with remaining cervical stump
CPT/HCPCS: 36415; 36600; 62328; 70450; 71045; 80048; 80053; 80202; 80307; 80320; 81001; 82140; 82728; 82803; 82945; 83540; 83550; 83605; 83735; 83930; 84100; 84145; 84157; 85025; 87040; 87070; 87077; 87186; 87205; 87252; 89051; 93005; 96374; 96375; 99291; G0378; J0696; J1644; J2405; J2543; J3370; J3480; G0480; J2060; J7030; J7040; J7050